=== PATIENT | female | born 1975 | race Caucasian/White ===

== ENCOUNTER → 2017-09-16 | Outpatient (CLI) | payer BC, SELFPAY | PROVIDERS: Visit Provider Nurse Practitioner Family | DX: N63.20 Unspecified lump in the left breast, unspecified quadrant (principal); N64.53 Retraction of nipple | CPT/HCPCS: 76641; 77065; G0206 ==

== ENCOUNTER → 2017-11-04 13:11 | Outpatient (CLI) | payer BC, SELFPAY ==
--- NOTE | 2017-11-04 13:18 | US_ITS ---
US breast LT complete COMPARISON: Ultrasound and mammogram 09/16/2017 INDICATION: Bloody nipple discharge with palpable abnormality at 9:00 ORDERING PHYSICIAN: Kamini Alexander PATIENT AGE: 42 years TECHNIQUE: Left breast ultrasound with axilla FINDINGS: In regards to the palpable area, there is a 7 x 4 mm oval area of decreased echogenicity in the subcutaneous region of the left breast just lateral to the nipple. No ductal dilatation noted contiguous with this lesion. No other significant anomalies are evident. There are small nodes in the axilla. IMPRESSION: 7 x 4 mm nodule in the subcutaneous region corresponding to the palpable abnormality at the 9:00 area of the left breast lateral to the nipple. This does not represent a simple cyst. Consider fine-needle aspiration with ultrasound guidance. Would also recommend a mammogram of the left breast at the time of the needle aspiration. Galactogram may be of further value if patient continues to have bloody nipple discharge. BI-RADS Category: 4 Suspicious Abnormality-Biopsy Considered RECOMMENDED FOLLOW-UP: BIO - BIOPSY RECOMMENDED Suggest fine needle aspiration of the subcutaneous lesion under ultrasound guidance with mammogram to be performed before the FNA. Also considered galactogram if there is indeed spontaneous bloody nipple discharge (A letter has been sent to the patient regarding results of the study.)
== END ==
PROVIDERS: Family Provider Family Medicine; PCP Family Medicine; Visit Provider Nurse Practitioner
DX: N60.02 Solitary cyst of left breast (principal)
CPT/HCPCS: 76641; Q9967

== ENCOUNTER → 2017-11-24 09:09 | Outpatient (CLI) | payer BC, SELFPAY ==
--- NOTE | 2017-11-24 09:19 | MM_ITS ---
MM Dig mamm DX unilat LT CAD COMPARISON: Mammogram of 09/16/2017 an ultrasound of 2 06/13 and 09/16/2017 INDICATION: Palpable nodule of the left breast with sonographic abnormality which is developed since 09/16/2017 ORDERING PHYSICIAN: Kamini Alexander PATIENT AGE: 42 years TECHNIQUE: Left mammogram performed along with spot compression views before and after fine needle aspiration FINDINGS: Average fibroglandular tissue. No discrete mass evident. Facet oblique, no abnormality evident in the region of the developing sonographically detected nodule. No abnormal calcifications. Cytology from the ultrasound-guided biopsy showed benign findings negative for malignancy IMPRESSION: Benign mammographic findings BI-RADS Category: 2 Benign Finding(s) RECOMMENDED FOLLOW-UP: 1YR - 1 YEAR FOLLOW-UP Recommend continued screening mammogram in August 2018. Also recommend correlation with physical exam. Any palpable nodule should be managed on a clinical basis (A letter has been sent to the patient regarding results of the study.)
--- NOTE | 2017-11-24 09:21 | US_ITS ---
FNA w guidance, US breast LT complete HISTORY: Palpable abnormality left breast with abnormal ultrasound and left nipple drainage. ORDERING PHYSICIAN: Kamini Alexander PATIENT AGE: 42 years COMPARISON: Ultrasound of 11/04/2017 Left breast ultrasound: Prebiopsy ultrasound performed once again confirming a hypoechoic area in the subcutaneous region at the 9:00 area corresponding to the palpable abnormality near the nipple. This may be slightly less apparent compared to the previous exam. TECHNIQUE: Following obtaining informed consent, using aseptic technique and local anesthesia with buffered lidocaine, fine-needle aspiration was performed of the nodule of interest using sonographic guidance. 3 passes were made into the nodule with a 25-gauge needle. Specimen was given to cytology. The patient tolerated the procedure well without evidence of immediate complications and left the ultrasound suite in stable condition. CYTOLOGY:Pending IMPRESSION: Uneventful ultrasound-guided fine-needle aspiration of the left breast nodule Cytology pending
== END ==
PROVIDERS: Family Provider Family Medicine; PCP Family Medicine; Visit Provider Nurse Practitioner
DX: N60.02 Solitary cyst of left breast (principal); N64.53 Retraction of nipple
CPT/HCPCS: 10022; 76641; 77065

== ENCOUNTER → 2018-07-31 10:07 | Outpatient (POV) | payer BC, SELFPAY | PROVIDERS: Visit Provider Nurse Practitioner Acute Care | DX: Z00.00 Encounter for general adult medical examination without abnormal findings (principal) ==

== ENCOUNTER → 2018-09-25 12:36 | Outpatient (CLI) | payer OTHER, SELFPAY ==
[2018-09-25 13:01] LABS: Basophils # 0.1 K/mm3 (0-0.2); Basophils % 0.7 % (0.1-2.0); Eosinophils # 0.1 K/mm3 (0.0-0.4); Eosinophils % 1.3 % (0.1-12.0); Hematocrit 48.2 % (37.0-47.0); Hemoglobin 15.5 g/dL (12.2-16.2); Lymphocytes # 2.4 K/mm3 (0.7-4.5); Lymphocytes % 27.4 % (10-50); Mean Corpuscular HGB Conc 32.2 g/dL (31.8-35.4); Mean Corpuscular Volume 99.5 fl (81-99); Mean Platelet Volume 7.8 fl (7.4-10.4); Monocytes # 0.4 K/mm3 (0.1-1.0); Monocytes % 4.1 % (1.7-9.3); Neutrophils # 5.9 K/mm3 (1.8-7.8); Neutrophils % 66.5 % (37.0-80.0); Platelet Count 332 K/mm3 (142-424); Red Blood Count 4.85 M/mm3 (4.20-5.40); White Blood Count 8.9 K/mm3 (4.8-10.8)
[2018-09-25 13:37] LABS: Hemoglobin A1C 5.2 % (0.0-7.0)
[2018-09-25 14:43] LABS: Alanine Aminotransferase 108 U/L (12-78); Albumin Level 4.1 gm/dL (3.4-5.0); Albumin/Globulin Ratio 1.1 (1.1-1.8); Alkaline Phosphatase 129 U/L (46-116); Anion Gap 14.3 mEq/L (5-15); Aspartate Amino Transferase 52 U/L (15-37); Bilirubin,Total 0.5 mg/dL (0.2-1.0); Blood Urea Nitrogen 5 mg/dL (7-18); Carbon Dioxide 27 mmol/L (21.0-32.0); Chloride 103 mmol/L (98-107); Chol/HDL Ratio 4.8 (1-3.5); Cholesterol 160 mg/dL (140-200); Creatinine,Serum 0.84 mg/dL (0.55-1.02); Estimated Glomerular Filt Rate 74 ml/min (>60); Free T4 (Free Thyroxine) 1.14 ng/dl (0.76-1.46); GFR (African American) 90 ML/MIN (>60); Globulin 3.6 gm/dl (1.3-3.2); Glucose 95 mg/dL (74-106); HDL Cholesterol 33 mg/dL (29-89); LDL Cholesterol 101 mg/dL (0-130); Lipase 75 u/L (73-393); Potassium 4.3 mmoL/L (3.5-5.1); Sodium 140 mmol/L (136-145); Thyroid Stimulating Hormone 1.45 uIU/ml (0.358-3.740); Total Protein,Serum 7.7 gm/dL (6.4-8.2); Triglycerides 132 mg/dL (30-200); VLDL Cholesterol 26 mg/dL (0-40)
[2018-09-26 04:08] LABS: Iron 76 ug/dL (27-159); UIBC 212 ug/dL (131-425)
[2018-09-26 11:19] LABS: Folate 16.9 ng/mL (>3.0); Iron Saturation 26 % (15-55); Vitamin B12 1635 pg/mL (232-1245); Vitamin D 25 Hydroxy 27.7 ng/mL (30.0-100.0)
== END ==
PROVIDERS: Visit Provider Nurse Practitioner
DX: R10.84 Generalized abdominal pain (principal); F41.9 Anxiety disorder, unspecified; R07.9 Chest pain, unspecified; F32.9 Major depressive disorder, single episode, unspecified; R53.83 Other fatigue
CPT/HCPCS: 36415; 80053; 80061; 82607; 82652; 82746; 83036; 83540; 83550; 83690; 84439; 84443; 85025

== ENCOUNTER → 2018-10-02 13:21 | Outpatient (POV) | payer SELFPAY | PROVIDERS: Visit Provider Nurse Practitioner Acute Care | DX: Z00.00 Encounter for general adult medical examination without abnormal findings (principal) ==

== ENCOUNTER → 2018-12-04 13:30 | Outpatient (POV) | payer OTHER, SELFPAY | PROVIDERS: Visit Provider Nurse Practitioner Acute Care | DX: Z00.00 Encounter for general adult medical examination without abnormal findings (principal) ==

== ENCOUNTER 2024-03-02 15:18 | Outpatient (CLI) | payer OTHER, SELFPAY ==
[2024-03-02 14:02] LABS: Basophils # 0.1 K/mm3 (0-0.2); Basophils % 1.3 % (0.1-2.0); Eosinophils # 0.1 K/mm3 (0.0-0.4); Eosinophils % 1.4 % (0.1-12.0); Hematocrit 48.2 % (37.0-47.0); Hemoglobin 16.1 g/dL (12.2-16.2); Lymphocytes # 1.5 K/mm3 (0.7-4.5); Lymphocytes % 20.7 % (10-50); Mean Corpuscular HGB Conc 33.4 g/dL (31.8-35.4); Mean Corpuscular Hemoglobin 36.7 pg (27.0-31.2); Mean Corpuscular Volume 109.8 fl (81-99); Monocytes # 0.4 K/mm3 (0.1-1.0); Monocytes % 4.7 % (1.7-9.3); Neutrophils # 5.4 K/mm3 (1.8-7.8); Platelet Count 256 K/mm3 (142-424); Red Blood Count 4.39 M/mm3 (4.20-5.40); Red Cell Distribution Width 13.4 % (11.5-17.5); White Blood Count 7.5 K/mm3 (4.8-10.8)
[2024-03-02 14:33] LABS: Alanine Aminotransferase 34 U/L (12-78); Albumin Level 4.5 g/dl (3.5-5.0); Albumin/Globulin Ratio 1.4 (1.1-1.8); Alkaline Phosphatase 78 U/L (38-126); Anion Gap 13.6 mEq/L (5-15); Aspartate Amino Transferase 36 U/L (14-36); Bilirubin,Total 0.7 mg/dl (0.2-1.3); Blood Urea Nitrogen 10 mg/dl (7-17); Calcium 9.6 mg/dl (8.4-10.2); Carbon Dioxide 26 mmol/L (22.0-30.0); Chloride 103 mmol/L (98-107); Chol/HDL Ratio 4.2 (1-3.5); Cholesterol 240 mg/dl (140-200); Estimated Glomerular Filt Rate 90 ml/min (>60); GFR (African American) 109 ML/MIN (>60); Globulin 3.2 g/dL (1.3-3.2); Glucose 87 mg/dl (74-100); HDL Cholesterol 57 mg/dl (40-60); Potassium 4.6 mmoL/L (3.5-5.1); Sodium 138 mmol/L (136-145); Total Protein,Serum 7.7 g/dl (6.3-8.2); Triglycerides 125 mg/dl (30-150); VLDL Cholesterol 25 mg/dL (0-40)
[2024-03-02 14:43] LABS: Direct LDL Cholesterol 123.06 mg/dL (100-129)
[2024-03-02 14:49] LABS: 25-OH Vitamin D, Total 51.2 ng/mL (30-100)
[2024-03-02 15:04] LABS: Thyroid Stimulating Hormone 1.01 uIU/mL (0.465-4.68)
[2024-03-02 15:23] LABS: Vitamin B12 903 pg/mL (239-931)
== END 2024-03-02 23:59 | disposition home or self-care (01) ==
LOC: LAB.DROPOF 15:18
PROVIDERS: PCP Nurse Practitioner Family; Visit Provider Nurse Practitioner Family
DX: Z13.0 Encounter for screening for diseases of the blood and blood-forming organs and certain disorders involving the immune mechanism (principal); Z13.220 Encounter for screening for lipoid disorders; F41.9 Anxiety disorder, unspecified; F32.A Depression, unspecified; Z68.25 Body mass index [BMI] 25.0-25.9, adult; E66.3 Overweight
CPT/HCPCS: 80050; 80053; 80061; 82306; 82607; 84443; 85025